=== PATIENT | male | born 1950 | race Caucasian/White ===

== ENCOUNTER 2024-01-18 18:53 | Emergency (ER) | payer OTHER, MEDICARE ==
[~2024-01-18] VITALS: Ht 177.8 cm; Wt 96.0 kg
[2024-01-18 19:02] VITALS: BP 114/71; PULSE 65; TEMP 98.6; O2SAT 96
[2024-01-18 19:15] VITALS: RESP 16
[2024-01-18] MEDS ORDERED: CEPH-585 PO (20:53)
[2024-01-18] MEDS: LIDOcaine 1% 30ml preserv. free vial IJ STA (21:00)
[2024-01-18] MEDS: cephalexin 250mg capsule PO ONE (21:08)
== END 2024-01-18 21:13 | disposition home or self-care (01) ==
LOC: ER 18:54
DX: S61.412A Laceration without foreign body of left hand, initial encounter (principal); F17.200 Nicotine dependence, unspecified, uncomplicated; W45.8XXA Other foreign body or object entering through skin, initial encounter; Y93.89 Activity, other specified; Y92.89 Other specified places as the place of occurrence of the external cause; Y99.8 Other external cause status
CPT/HCPCS: 12004; 73130; 99283; A6258; A6446; A6449